=== PATIENT | male | born 1965 | race Caucasian/White ===

== ENCOUNTER 2024-08-10 06:16 | Emergency (ER) | payer OTHER, MEDICAID, SELFPAY ==
[2024-08-10 06:24] VITALS: BP 136/80; PULSE 100; RESP 20; TEMP 36.9; O2SAT 97; BMI 36.5
--- NOTE | 2024-08-10 06:25 | ED_ITS ---
HPI - General Adult General Chief complaint: Extremity Problem,Nontraumatic Stated complaint: left knee wound says its mersa Time Seen by Provider: 08/10/24 06:19 Source: patient Mode of arrival: Ambulatory Limitations: no limitations History of Present Illness HPI narrative: Patient is a 59-year-old male here for evaluation of a wound on the front portion of his left knee. He was unsure as to how the initial event happened but he states it has been worsening over the past couple days. He does have history of MRSA. He states that this morning the wound opened up and started to drain. No fevers. Some discomfort over the area of bending his knee but not in the knee joint itself. Related Data Previous Rx's Medication Instructions Recorded doxycycline hyclate 100 mg tablet 100 mg PO BID 7 days #14 tabs 08/10/24 Allergies Allergy/AdvReac Type Severity Reaction Status Date / Time No Known Drug Allergies Allergy Verified 08/10/24 06:23 Review of Systems Constitutional Constitutional: Reports system reviewed and no additional complaints, except as documented Musculoskeletal Musculoskeletal: Reports system reviewed and no additional complaints, except as documented Integumentary/Breasts Skin/Breast: Reports system reviewed and no additional complaints, except as documented Exam Initial Vital Signs Initial Vital Signs: Vital Signs Temperature 98.4 F 08/10/24 06:24 Pulse Rate 100 H 08/10/24 06:24 Respiratory Rate 20 08/10/24 06:24 Blood Pressure 136/80 08/10/24 06:24 Pulse Oximetry 97 08/10/24 06:24 Oxygen Delivery Method Room Air 08/10/24 06:24 Skin Other: Patient with a 4 cm in diameter area of erythema to the anterior portion of the left knee. There was a 1 cm area in the center of what appeared to be an abscess that is now draining. Extrem Other: Patient was able to flex and extend the left knee without discomfort. Course Orders Ordered: Discontinued Medications Doxycycline Hyclate (Doxycycline Hyclate 100 Mg Tablet) 100 mg PO NOW ONE Stop: 08/10/24 06:27 Last Admin: 08/10/24 06:29 Dose: 100 mg Vital Signs Vital signs: Vital Signs - 8 hr 08/10/24 06:24 Temperature 98.4 F Pulse Rate 100 H Respiratory Rate 20 Blood Pressure 136/80 Pulse Oximetry 97 Oxygen Delivery Method Room Air Medical Decision Making MDM Narrative Medical decision making narrative: Patient certainly has what appeared to be a abscess that is now draining. There was no underlying induration. No indication for an incision and drainage today as it was draining very well here in the ER. There is a surrounding area of erythema. I have low suspicion for septic joint. Plan will be to place him on antibiotics. He was given 1st dose here in the ER and a prescription was sent to the pharmacy of his choice. He was given return precautions. He expressed understanding and agreement. Discharge Plan Departure Patient Disposition: Home Clinical Impression: Cellulitis Instructions: Cellulitis Activity Restrictions/Additional Instructions: A prescription for antibiotics was sent to [facility] on [address] in [facility]. Please pick it up and start taking it as directed. You can shower like normal. You can try putting some topical antibiotic ointment over the area. Return to the emergency department for new symptoms. Prescriptions: New doxycycline hyclate 100 mg tablet 100 mg PO BID 7 Days Qty: 14 0RF Stand Alone Forms: Patient Portal/API
[2024-08-10] MEDS: DOXYCYCLINE HYCLATE 100 MG TABLET PO (06:29)
== END 2024-08-10 06:35 | disposition home or self-care (01) ==
PROVIDERS: Emergency Provider Emergency Medicine
DX: L03.116 Cellulitis of left lower limb (principal)
CPT/HCPCS: 99283

== ENCOUNTER 2024-11-28 02:45 | Observation (INO) | payer OTHER, SELFPAY ==
[2024-11-28] VITALS (14 sets, daily range): BP systolic 108–140; BP diastolic 56–83; PULSE 98–123; RESP 18–25; TEMP 36.2–38.8; O2SAT 92–97; BMI 38.0
--- NOTE | 2024-11-28 02:48 | ED.GENADULT ---
HPI - General Adult General Chief complaint: Nausea/Vomiting/Diarrhea Stated complaint: Vomiting, dizzy Time Seen by Provider: 11/28/24 02:46 History of Present Illness HPI narrative: 59-year-old male complains of 5 days duration of crampy abdominal pain, intermittent diarrhea, sometimes with blood-tinged component, not necessarily mixed with stool, also has headache. He denies having chest discomfort, shortness of breath, cough. Feels dizzy. No recent antibiotics. Denies painful urination or frequency of urination. Admitted to recent drug use to nursing, reports history also of narcolepsy Related Data Home Medications Medication Instructions Recorded Confirmed No Known Home Medications 11/28/24 11/28/24 Allergies Allergy/AdvReac Type Severity Reaction Status Date / Time No Known Drug Allergies Allergy Verified 08/10/24 06:23 Patient History Social History household members: none Smoking Status: Current every day smoker alcohol intake: current Smoking Status: Current every day smoker tobacco type: cigarettes alcohol intake frequency: holidays/special occasions only Exam Narrative Exam Narrative: GENERAL: Well-developed patient, in mild distress. Sleepy but arousable. HEAD: Atraumatic. Normocephalic. EYES: Pupils equal round and reactive. Extraocular motions intact. No scleral icterus. No injection or drainage. ENT: Nose without bleeding, purulent drainage. Throat without erythema, tonsillar hypertrophy or exudate. Airway patent. NECK: Trachea midline. Non tender CARDIOVASCULAR: Fast rate regular rhythm without murmurs, gallops, or rubs. RESPIRATORY: Clear to auscultation. Breath sounds equal bilaterally. No wheezes, rales, or rhonchi. GASTROINTESTINAL: Abdomen soft, non-tender, nondistended. Bowel tones not increased or decreased, no rushes/tinkles EXTREMITIES: No edema or joint tenderness. BACK: Nontender without deformity or crepitance. No flank tenderness. NEURO: AOx3. Motor functions grossly nonfocal SKIN: No rash or erythema of visible areas Initial Vital Signs Initial Vital Signs: Vital Signs Temperature 101.8 F H 11/28/24 02:50 Pulse Rate 123 H 11/28/24 02:50 Respiratory Rate 24 11/28/24 02:50 Pulse Oximetry 92 11/28/24 02:50 Oxygen Delivery Method Room Air 11/28/24 02:50 Course Orders Ordered: Acetaminophen (Acetaminophen 325 Mg Tablet) 650 mg PO Q6H PRN PRN Reason: Fever/Mild Pain (1-3) Hydrocodone Bitart/Acetaminophen (Hydrocodone/Acet 5/325 Tablet) 1 tab PO Q4H PRN PRN Reason: Pain, Moderate (4-6) Heparin Sodium (Porcine) (Heparin 5,000 Unit/Ml Vial) 5,000 unit SUBCUT BID [facility] Last Admin: 11/28/24 10:19 Dose: Not Given Documented By: JAYNE Hydromorphone HCl (Hydromorphone 0.5 Mg Inj) 0.5 mg IV Q2H PRN PRN Reason: Pain, Severe (7-10) Sodium Chloride (Normal Saline 0.9%) 1,000 mls @ 100 mls/hr IV CONT [facility] Last Admin: 11/28/24 09:24 Dose: 100 mls/hr Documented By: JAYNE Ceftriaxone Sodium 1,000 mg/ (Sodium Chloride) 100 mls @ 200 mls/hr IV Q24H [facility] Last Infusion: 11/28/24 07:11 Dose: Infused Documented By: Admin: 11/28/24 06:31 Dose: 200 mls/hr Documented By: KH Metronidazole (Flagyl) 500 mg in 100 mls @ 100 mls/hr IV Q8H [facility] Last Admin: 11/28/24 11:33 Dose: 100 mls/hr Documented By: JAYNE Naloxone HCl (Naloxone 0.4 Mg/Ml Vial) 0.2 mg IV Q2MIN PRN PRN Reason: Opiate Reversal Ondansetron HCl (Ondansetron 4 Mg/2 Ml Inj) 4 mg IV Q6HR PRN PRN Reason: Nausea And Vomiting Discontinued Medications Sodium Chloride (Normal Saline 0.9%) 1,000 mls @ 1,000 mls/hr IV BOLUS ONE Stop: 11/28/24 03:55 Last Infusion: 11/28/24 06:55 Dose: Infused Documented By: Infusion: 11/28/24 06:35 Dose: 450 mls/hr Documented By: Infusion: 11/28/24 05:50 Dose: 350 mls/hr Documented By: Infusion: 11/28/24 04:39 Dose: 300 mls/hr Documented By: Infusion: 11/28/24 03:05 Dose: 250 mls/hr Documented By: Admin: 11/28/24 03:03 Dose: 1,000 mls/hr Documented By: MILTON Sodium Chloride (Normal Saline 0.9%) 1,000 mls @ 1,000 mls/hr IV BOLUS ONE Stop: 11/28/24 04:05 Last Infusion: 11/28/24 09:10 Dose: Infused Documented By: Infusion: 11/28/24 08:55 Dose: 450 mls/hr Documented By: Admin: 11/28/24 06:54 Dose: 450 mls/hr Documented By: RANDAL Metronidazole (Flagyl) 500 mg in 100 mls @ 100 mls/hr IV Q8H [facility] Last Admin: 11/28/24 10:19 Dose: Not Given Documented By: JAYNE Vital Signs Vital signs: Vital Signs - 8 hr 11/28/24 02:50 11/28/24 04:30 11/28/24 04:48 Temperature 101.8 F H Pulse Rate 123 H 113 H 113 H Respiratory Rate 24 25 H 25 H Blood Pressure 131/78 Pulse Oximetry 92 95 95 Oxygen Delivery Method Room Air Room Air 11/28/24 05:00 11/28/24 05:30 Temperature Pulse Rate 116 H 111 H Respiratory Rate 21 23 Blood Pressure Pulse Oximetry 95 94 Oxygen Delivery Method Medical Decision Making Lab Data Lab results reviewed: Yes I reviewed the patient's lab results. Lab results narrative: White blood cell count 44904, hemoglobin 16.4, platelets adequate. Glucose 145. Sodium 136, potassium 3.8, serum CO2 19 decreased, serum chloride 106, BUN 19 with creatinine 0.69 both normal. Liver functions and lipase normal lactate 1.5 not elevated. Urine dip negative. Urine tox screen positive for amphetamine, methamphetamine, MDMA, cocaine. 11/28/24 03:15 11/28/24 03:15 Labs: Lab Results 11/28/24 11/28/24 Range/Units 03:15 05:14 WBC 12.4 H (4.5-11.0) X10^3/uL RBC 5.90 (4.5-5.9) X10^6/uL Hgb 16.4 (13.5-17.5) g/dL Hct 49.1 (41-53) % MCV 83.2 (80-100) fL MCH 27.7 (26-34) PG MCHC 33.3 (30-36) % RDW 14.5 (11.6-14.8) % Plt Count 271 (150-400) X10^3/uL Neut % (Auto) 95.1 H (50-75) % Lymph % (Auto) 2.0 L (25-40) % [place] % (Auto) 2.3 L (3-14) % Eos % (Auto) 0.5 L (2-4) % Baso % (Auto) 0.1 (0-2) % Neut # (Auto) 58199 H (3993-7242) /uL Lymph # (Auto) 200 L (9749-4516) /uL [place] # (Auto) 300 (0-900) /uL Eos # (Auto) 100 (0-450) /uL Baso # (Auto) 0 (0-100) /uL Sodium 136 L (137-145) mmol/L Potassium 3.8 (3.4-5.1) mmol/L Chloride 106 (98-107) mmol/L Carbon Dioxide 19 L (22-32) mmol/L BUN 19 (9-20) mg/dL Creatinine 0.69 (0.66-1.25) mg/dL Estimated GFR > 60 (>60) mL/min BUN/Creatinine Ratio 27.5 H (6-22) Glucose 145 H (70-100) mg/dL Lactate 1.5 (0.7-2.1) mmol/L Calcium 8.4 (8.4-10.2) mg/dL Total Bilirubin 0.7 (0.2-1.3) mg/dL AST 28 (17-59) IU/L ALT 31 (<50) IU/L Alkaline Phosphatase 81 (38-126) U/L Total Protein 7.7 (6.3-8.2) g/dL Albumin 4.3 (3.5-5.0) g/dL Globulin 3.4 (1.7-4.1) g/dL Albumin/Globulin Ratio 1.3 (1.0-2.8) Lipase 59 (23-300) U/L Ur Bilirubin Confirm Negative (Negative) U Opiates 300ng/mL cut Negative (Negative) Ur Oxycodone Screen Negative (Negative) Urine Methadone Screen Negative (Negative) Ur Barbiturates Screen Negative (Negative) U Tricyclic Antidepress Negative (Negative) Ur Phencyclidine Scrn Negative (Negative) Ur Amphetamines Screen Positive H (Negative) U Methamphetamines Scrn Positive H (Negative) Ur MDMA Scrn (Ecstasy) Positive H (Negative) U Benzodiazepines Scrn Negative (Negative) Urine Cocaine Screen Positive H (Negative) U Marijuana (THC) Screen Negative (Negative) Urine pH TNP Urine Specific [place] TNP Ur Creatinine TNP Urine Dip Bedside Urine Glucose Negative Bedside Urine Bilirubin + 1 Bedside Urine Ketone - Negative Urine Specific [place] 1.015 Bedside Urine Occult Blood - Negative Bedside Urine pH 5.5 Bedside Urine Protein - Negative Bedside Urine Urobilinogen - Negative Bedside Urine Nitrite - Negative Bedside Urine Leukocytes - Negative Esterase Point of care testing: Urine Dip Bedside Urine Glucose Negative Bedside Urine Bilirubin + 1 Bedside Urine Ketone - Negative Urine Specific [place] 1.015 Bedside Urine Occult Blood - Negative Bedside Urine pH 5.5 Bedside Urine Protein - Negative Bedside Urine Urobilinogen - Negative Bedside Urine Nitrite - Negative Bedside Urine Leukocytes - Negative Esterase ECG Data Attestation: I personally reviewed and interpreted this ECG as follows: Interpretation: Sinus tachycardia with rate of 115. No obvious ST segment elevation or depression changes. SD 172, QRS 92, QTC 450. [facility] Narrative Medical decision making narrative: 59-year-old male with abdominal discomfort, vomiting, diarrhea, tachycardia noted, fever on triage, sirs screen positive. Stool specimen requested by none received initially. IV fluid bolus. Blood cultures. IV ceftriaxone after blood and urine specimens requested. CT abdomen and pelvis ordered. White blood cell count 25351, lactate normal, hemoglobin normal, basic metabolic panel with decreased serum CO2 19 otherwise unremarkable. LFTs unremarkable. UDS positive for methamphetamine, amphetamine, MDMA, cocaine. Urine dip negative for blood/nitrite. Chest x-ray single view. Impressions: ?Normal heart size to borderline cardiomegaly. ? See tele radiology report CT abdomen and pelvis with IV contrast. Impressions: ?Distended 4 cm with predominantly left-sided jejunal loops with up to 9 mm circumferential wall thickening. No definite evidence of transition point or neighboring fat stranding. Jejunitis can not be excluded for clinical correlation is recommended. Indeterminate 25 mm left adrenal nodule, further evaluation with nonemergent adrenal protocol CT or MRI recommended. ? See tele radiology report Fluid bolus infused, IV ceftriaxone after blood cultures had been requested for empiric treatment of possible sepsis. Urinalysis and stool study still pending. Persisting tachycardia 115, normotensive, consider admission, will discuss with hospitalist. 0600, case discussed with hospitalist Dr. Mata who will admit patient to [facility] tele observation Discharge Plan Departure Patient Disposition: Admitted as Observation Clinical Impression: Tachycardia, Nausea vomiting and diarrhea, Substance abuse, Fever Admit Date/Time: 11/28/24 06:09 Admit Provider: Austin Mata
[2024-11-28] MEDS: SODIUM CHLORIDE 0.9% 1,000 ML 1000 ML IV (03:03)
--- NOTE | 2024-11-28 03:11 | EKG_ITS ---
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
--- NOTE | 2024-11-28 03:22 | DI.RAD.S_ITS ---
PROCEDURE: XR CHEST 1V INDICATIONS: fever TECHNIQUE: One view of the chest was acquired. COMPARISON: [facility], CT, CT ABDOMEN PELVIS W CON, 11/28/2024, 4:02. FINDINGS: Surgical changes and devices: None. Lungs and pleura: An incomplete inspiratory result is noted, causing a crowded appearance to the lung markings. No focal infiltrates are seen. No pneumothorax or significant pleural effusions are seen. The patient's face/chin overlies the pulmonary apices, which limits evaluation. Mediastinum: The cardiac contours are at the upper limits of normal. The aorta demonstrates calcification and tortuosity. Bones and chest wall: No suspicious bony lesions. Age-appropriate bony degenerative changes are seen. Overlying soft tissues appear unremarkable. IMPRESSION: Low lung volumes, without a focal infiltrate. Heart size at the upper limits of normal. Note: No significant discrepancy from the preliminary report. Dictated by: Luis Johnson M.D. on 11/28/2024 at 9:01 Approved by: Luis Johnson M.D. on 11/28/2024 at 9:02
--- NOTE | 2024-11-28 03:33 | PC.NURSE ---
pt c/o n/v admits to using meth about an hour ago, continues to doze off while attempting to get pt assessed, pt states I have narcolepsy, not actively vomiting at this time,
[2024-11-28 03:38] LABS: Add Manual Diff / Slide Review NO; Basophils Absolute Auto 0 /uL (0-100); Basophils Percent Auto 0.1 % (0-2); Eosinophils Absolute Auto 100 /uL (0-450); Eosinophils Percent Auto 0.5 % (2-4); Hematocrit 49.1 % (41-53); Hemoglobin 16.4 g/dL (13.5-17.5); Lymphocytes Absolute Auto 200 /uL (1100-4500); Mean Corpuscular HGB Conc 33.3 % (30-36); Mean Corpuscular Hemoglobin 27.7 PG (26-34); Mean Corpuscular Volume 83.2 fL (80-100); Monocytes Absolute Auto 300 /uL (0-900); Monocytes Percent Auto 2.3 % (3-14); Neutrophils Absolute Auto 11800 /uL (1500-7000); Neutrophils Percent Auto 95.1 % (50-75); Platelet Count 271 X10^3/uL (150-400); Red Cell Distribution Width 14.5 % (11.6-14.8); White Blood Cell Count 12.4 X10^3/uL (4.5-11.0)
--- NOTE | 2024-11-28 03:40 | DI.CT.S_ITS ---
PROCEDURE: CT ABDOMEN PELVIS W CON INDICATIONS: abd pain TECHNIQUE: After the administration of intravenous contrast, axial sections acquired from the lung bases to the pubic symphysis. Coronal and sagittal reformats were performed. For radiation dose reduction, the following was used: automated exposure control, adjustment of mA and/or kV according to patient size. COMPARISON: [facility], CR, XR CHEST 1V, 11/28/2024, 3:33. FINDINGS: Image quality: This examination is limited by involuntary motion artifact. Lower Chest: Streaky a likely atelectasis can be seen at the lung bases. ABDOMEN: Liver: No solid mass. Diffuse fatty liver infiltration is noted. Gallbladder: No radiopaque gallstones or wall thickening. Biliary ducts: No biliary dilation. Pancreas: No ductal dilation. Spleen: Size is within normal limits. Adrenal Glands: There is a left adrenal nodule seen that measures up to 2.2 cm. No right adrenal nodules. Kidneys and Ureters: No hydronephrosis. No solid mass. No complex renal cystic lesion which requires follow up. Stomach and Bowel: Mild prominence of fluid-filled small bowel can be seen proximally, measuring up to 3.7 cm. These proximal small bowel loops appear thickened and mildly hypervascular. The distal small bowel is decompressed. No focal transition point can be seen. No significant colonic abnormality is seen. Peritoneum: No abnormal intraperitoneal fluid. No free air. Ventral Wall: No significant ventral hernia. Abdominal Nodes: No retroperitoneal or mesenteric adenopathy by size criteria. Vessels: Aorta and inferior vena cava are normal in size. PELVIS: Pelvic Organs: Unremarkable. Bladder: No bladder wall thickening, accounting for underdistention. Pelvic Nodes: No enlarged lymph nodes. Miscellaneous: No inguinal hernias are seen. Bones: No aggressive osseous abnormality. IMPRESSION: Prominence of proximal small bowel loops can be seen, with decompressed distal small bowel loops. No focal transition point seen. Proximal enteritis is suspected. Differential diagnosis includes small bowel obstruction, yet this is considered to be less likely. Left adrenal nodule seen. This is indeterminate. - Please consider a dedicated adrenal protocol MRI for further evaluation (assuming that there is no contraindication). Additional findings: Fatty liver infiltration Note: No significant discrepancy from the preliminary report. Dictated by: Luis Johnson M.D. on 11/28/2024 at 9:05 Approved by: Luis Johnson M.D. on 11/28/2024 at 9:09
[2024-11-28 03:45] LABS: Lactate (Lactic Acid) 1.5 mmol/L (0.7-2.1)
[2024-11-28 03:46] LABS: Alanine Aminotransferase 31 IU/L (<50); Albumin 4.3 g/dL (3.5-5.0); Albumin Globulin Ratio 1.3 (1.0-2.8); Alkaline Phosphatase 81 U/L (38-126); Aspartate Aminotransferase 28 IU/L (17-59); BUN Creatinine Ratio 27.5 (6-22); Bilirubin Total 0.7 mg/dL (0.2-1.3); Blood Urea Nitrogen 19 mg/dL (9-20); Calcium 8.4 mg/dL (8.4-10.2); Carbon Dioxide 19 mmol/L (22-32); Chloride 106 mmol/L (98-107); Estimated Glomerular Filt Rate > 60 mL/min (>60); Globulin 3.4 g/dL (1.7-4.1); Glucose 145 mg/dL (70-100); HEMOLYSIS 18 (0-50); Lipase 59 U/L (23-300); Potassium 3.8 mmol/L (3.4-5.1); Sodium 136 mmol/L (137-145); Total Protein 7.7 g/dL (6.3-8.2)
--- NOTE | 2024-11-28 04:10 | PC.NURSE ---
to CT per stretcher
[2024-11-28 05:47] LABS: Ictotest Urine Negative (Negative)
[2024-11-28 05:53] LABS: Urine Amphetamines Positive (Negative); Urine Barbiturates Negative (Negative); Urine Benzodiazepines Negative (Negative); Urine Cocaine Positive (Negative); Urine MDMA Positive (Negative); Urine Methadone Negative (Negative); Urine Methamphetamines Positive (Negative); Urine Opiates Negative (Negative); Urine Oxycodone Negative (Negative); Urine Phencyclidine Negative (Negative); Urine THC Negative (Negative); Urine Tricyclic Antidepressant Negative (Negative)
[2024-11-28] MEDS: cefTRIAXone 1,000 MG in SODIUM CHLORIDE 0.9% 100 ML 200 MG IV (06:31)
--- NOTE | 2024-11-28 06:31 | PC.NURSE ---
Attempted to locate pt ride/friend in parking lot, but was unsuccessful.
[2024-11-28] MEDS: SODIUM CHLORIDE 0.9% 1,000 ML 450 ML IV (06:54)
--- NOTE | 2024-11-28 08:07 | PM.HP.1 ---
History of Present Illness History of Present Illness Chief complaint: Vomiting, dizzy Narrative: 59-year-old male with past medical history of polysubstance abuse presents with abdominal pain. Per the patient's report, the patient has been having nausea, vomiting and non-bloody diarrhea over the past five days. The patient states that his abdominal pain is generalized and cramping in nature. The patient denies any recent travel or sick contact. The patient admit to have illicit drug use including cocaine and methamphetamine. The patient otherwise denies any fever, chills, chest pain, shortness of breath, dysuria or syncope. In our emergency room, the patient was persistently in sinus tachycardia. The patient was hemodynamically stable. Lab showed WBC of 12 with normal lactic acid. UA were negative. CT scan of the abdomen with IV contrast shows findings in which Jejunitis can not be excluded. In addition, due to persistent tachycardia and elevated white count our ER physician did give IV Ceftriaxoneto cover for G.I. infection and requested admission to observation. Also UA positive for cocaine, methamphetamine and MDMA. [facility], [facility] Social History Smoking Status: Current every day smoker Meds Home Medications and Allergies Home Medications Medication Instructions Recorded Confirmed Type No Known Home Medications 11/28/24 11/28/24 History Allergies Allergy/AdvReac Type Severity Reaction Status Date / Time No Known Drug Allergies Allergy Verified 08/10/24 06:23 Review of Systems Review of Systems ROS: Yes All systems reviewed with the patient and are negative except as otherwise documented Exam Vital Signs (past 8 hours): - 11/28/24 02:50 11/28/24 04:30 11/28/24 04:48 Temperature 101.8 F H Pulse Rate 123 H 113 H 113 H Respiratory Rate 24 25 H 25 H Blood Pressure 131/78 Pulse Oximetry 92 95 95 Oxygen Delivery Method Room Air Room Air 11/28/24 05:00 11/28/24 05:30 11/28/24 06:00 Temperature Pulse Rate 116 H 111 H 110 H Respiratory Rate 21 23 25 H Blood Pressure Pulse Oximetry 95 94 94 Oxygen Delivery Method 11/28/24 06:00 11/28/24 06:30 11/28/24 06:30 Temperature Pulse Rate 111 H Respiratory Rate Blood Pressure 116/83 122/61 Pulse Oximetry 95 Oxygen Delivery Method 11/28/24 07:00 11/28/24 07:00 11/28/24 07:30 Temperature Pulse Rate 110 H 107 H Respiratory Rate 18 Blood Pressure 116/56 L Pulse Oximetry 94 95 Oxygen Delivery Method Room Air Oxygen Delivery Method Room Air Narrative Exam Narrative: Physical Exam: GENERAL: The patient is not in any acute distressed. Awake and alert. HEENT: Nonicteric sclerae, PERRLA, EOMI. Oropharynx clear. Moist mucous membranes. Conjunctivae appear well perfused. HEART: Tachycardia with regular rhythm without murmurs. No lower extremities edema. LUNGS: Clear to auscultation bilaterally. No wheezing, crackles or rhonchi ABDOMEN: Soft, positive bowel sounds, nontender. SKIN: No rash, no excessive bruising, petechiae, or purpura. NEUROLOGIC: AxO x 3. Cranial nerves II-XII intact without motor/sensory deficit. Objective Labs 11/28/24 03:15 11/28/24 03:15 Labs: Laboratory Results - last 24 hr 11/28/24 11/28/24 03:15 05:14 WBC 12.4 H RBC 5.90 Hgb 16.4 Hct 49.1 MCV 83.2 MCH 27.7 MCHC 33.3 RDW 14.5 Plt Count 271 Neut % (Auto) 95.1 H Lymph % (Auto) 2.0 L [place] % (Auto) 2.3 L Eos % (Auto) 0.5 L Baso % (Auto) 0.1 Neut # (Auto) 65735 H Lymph # (Auto) 200 L [place] # (Auto) 300 Eos # (Auto) 100 Baso # (Auto) 0 Sodium 136 L Potassium 3.8 Chloride 106 Carbon Dioxide 19 L BUN 19 Creatinine 0.69 Estimated GFR > 60 BUN/Creatinine Ratio 27.5 H Glucose 145 H Lactate 1.5 Calcium 8.4 Total Bilirubin 0.7 AST 28 ALT 31 Alkaline Phosphatase 81 Total Protein 7.7 Albumin 4.3 Globulin 3.4 Albumin/Globulin Ratio 1.3 Lipase 59 Ur Bilirubin Confirm Negative U Opiates 300ng/mL cut Negative Ur Oxycodone Screen Negative Urine Methadone Screen Negative Ur Barbiturates Screen Negative U Tricyclic Antidepress Negative Ur Phencyclidine Scrn Negative Ur Amphetamines Screen Positive H U Methamphetamines Scrn Positive H Ur MDMA Scrn (Ecstasy) Positive H U Benzodiazepines Scrn Negative Urine Cocaine Screen Positive H U Marijuana (THC) Screen Negative Urine pH TNP Urine Specific [place] TNP Ur Creatinine TNP Assessment & Plan Assessment & Plan narrative: Positive for SIRS criteria with possible Jejunitis. Admit the patient to medical telemetry under observation. Patient meets SIRS criteria though the lactic acid is normal. Continue aggressive IV fluid with IV Ceftriaxone and Flagyl. Monitor for sepsis. Persistent sinus tachycardia. Could be related to patient's poly substance abuse including methamphetamine and cocaine. Will treat as above and monitor heart rate. Polysubstance abuse. Monitor for withdrawal Dehydration. IV fluid. DVT prophylaxis SCDs Code status is full code. Disposition likely home in 1 to 2 days. Time-Based Coding :: [TOTAL MINUTES] spent with patient and on the chart (including review of chart, obtaining history, exam, reviewing outside data, placing orders, documenting exam and treatment plan, and counseling patient) on [DATE].
--- NOTE | 2024-11-28 08:55 | PC.NURSE ---
Pt able to stand and shuffle to bed in acute care. Pt refusing to remove his pants stating I dont have underwear. Pt informed we can provide underwear. Pt continues to get increasing agitated states I'm not taking off my pants! You'll just have to go get a bunch of people to make me. Pt informed we need to check his skin for any signs of infection under his pants and pt continues to refuse and yell You are not taking my pants off! Pt's jacket and shirt were removed and pt placed in hospital gown with pants remaining on.
[2024-11-28] MEDS: SODIUM CHLORIDE 0.9% 1,000 ML 100 ML IV ×2 (09:24→19:25)
[2024-11-28] MEDS: metroNIDAZOLE 500 MG/100 ML PIGGYBACK 100 MG IV ×2 (11:33→18:36)
--- NOTE | 2024-11-28 11:55 | PC.NURSE ---
Pt ambulated to BR contact guard, declines to use FWW despite unsteady gait. Reports history of colon cancer in 2020, stated it was cured with oregano oil and is fearful it might be back. Pt sitting at edge of bed, kicking feet backward against bed frame. Pt uncooperative with admit assessment. Pt still sitting at edge of bed, declines to sit in chair on back in bed despite unsteady posture and forward leaning. Pt educated by this RN on fall prevention and his risk of falls. Pt continues to decline. Care ongoing.
--- NOTE | 2024-11-28 16:47 | PM.PN.1 ---
Subjective Subjective Interval history: 59-year-old male with past medical history of polysubstance dependence, reported history of colon cancer which he states was cured with oregano oil who presented overnight with crampy abdominal pain, diarrhea, and sepsis. CT scan revealed evidence of proximal small bowel enteritis. A left adrenal nodule was also identified. Blood cultures were drawn and are pending. He was initiated on ceftriaxone and Flagyl. At the time of my evaluation, patient is snoring. He will very briefly awaken and rapidly falls back asleep. When I have asked him to stay awake and talked me, he responds ?I am awake? and quickly falls back asleep. Earlier in the morning, he was upset with his day shift nurse, telling her that we did not know what was wrong with him. He did express concern that his colon cancer could be back. Exam Vital Signs (past 8 hours): - 11/28/24 09:07 11/28/24 15:00 Temperature 98.1 F 97.6 F Pulse Rate 111 H 103 H Respiratory Rate 22 24 Blood Pressure 108/64 129/67 Pulse Oximetry 97 97 Oxygen Flow Rate 0 0 Oxygen Delivery Method Room Air Oxygen Flow Rate 0 Narrative Exam Narrative: GEN: Middle-aged male, currently nontoxic appearing, snoring and asleep, NAD HEENT:NC, Face symmetric CHEST: Respiratory excursions symmetric, CTAB CV: RRR, no M/R/G ABD: Soft, obese, NT/ND, BT present in all 4 quadrants, body habitus limits exam EXTR: warm, well perfused, no C/C/E SKIN: warm and dry, no rash NEURO: Unable to assess due to his deep sleeping Objective Labs 11/28/24 03:15 11/28/24 03:15 Labs: Laboratory Results - last 24 hr 11/28/24 11/28/24 03:15 05:14 WBC 12.4 H RBC 5.90 Hgb 16.4 Hct 49.1 MCV 83.2 MCH 27.7 MCHC 33.3 RDW 14.5 Plt Count 271 Neut % (Auto) 95.1 H Lymph % (Auto) 2.0 L [place] % (Auto) 2.3 L Eos % (Auto) 0.5 L Baso % (Auto) 0.1 Neut # (Auto) 90325 H Lymph # (Auto) 200 L [place] # (Auto) 300 Eos # (Auto) 100 Baso # (Auto) 0 Sodium 136 L Potassium 3.8 Chloride 106 Carbon Dioxide 19 L BUN 19 Creatinine 0.69 Estimated GFR > 60 BUN/Creatinine Ratio 27.5 H Glucose 145 H Lactate 1.5 Calcium 8.4 Total Bilirubin 0.7 AST 28 ALT 31 Alkaline Phosphatase 81 Total Protein 7.7 Albumin 4.3 Globulin 3.4 Albumin/Globulin Ratio 1.3 Lipase 59 Ur Bilirubin Confirm Negative U Opiates 300ng/mL cut Negative Ur Oxycodone Screen Negative Urine Methadone Screen Negative Ur Barbiturates Screen Negative U Tricyclic Antidepress Negative Ur Phencyclidine Scrn Negative Ur Amphetamines Screen Positive H U Methamphetamines Scrn Positive H Ur MDMA Scrn (Ecstasy) Positive H U Benzodiazepines Scrn Negative Urine Cocaine Screen Positive H U Marijuana (THC) Screen Negative Urine pH TNP Urine Specific [place] TNP Ur Creatinine TNP PFSH Social History household members: none Smoking Status: Current every day smoker alcohol intake: current Assessment & Plan Assessment & Plan narrative: 1. Sepsis Patient presented with symptoms and signs of sepsis, including fever, tachycardia, leukocytosis, and evidence of enteritis. He does have a history of polysubstance dependence as well. I am unable to further clarify his use. Blood cultures have been drawn and are pending. At this time he remains on ceftriaxone and Flagyl. Will continue present treatment. He is presently afebrile. 2. Proximal small bowel enteritis Continue ceftriaxone and Flagyl. Will send stool cultures and fecal leukocytes if he produces any stool. 3. Polysubstance dependence I am unable to obtain history at this time, but his urine tox screen was positive for amphetamines, methamphetamines, MDMA, and cocaine. 4. Reported history of colon cancer Untreated per his report. We have no history in our medical record system to obtain further information. Will await when he is more awake and alert to obtain additional information as to his diagnosis and treatment. 5. Tobacco dependence Nicotine patch as needed Code status Full Prophylaxis Heparin Disposition Pending Time-Based Coding :: [TOTAL MINUTES] spent with patient and on the chart (including review of chart, obtaining history, exam, reviewing outside data, placing orders, documenting exam and treatment plan, and counseling patient) on [DATE].
--- NOTE | 2024-11-28 21:49 | PC.NURSE ---
Addendum entered by Janett Spencer R.N. 11/29/24 07:07: Pt set off chair alarm getting up to ambulate to bathroom despite fall prevention education. Patient then declined to call when done, however this RN was waiting outside the door and helped him get back into his chair. Despite further educating patient on fall risk, pt repeatedly stated he would not call for assistance ambulating because he doesn't need it and he's faster than you. Addendum entered by Janett Spencer R.N. 11/29/24 05:55: Pt slept soundly in his chair most of the night, awakened only by visitor (girlfriend) and lab and fell quickly back asleep both times. Addendum entered by Janett Spencer R.N. 11/29/24 00:38: Pt snoring loudly; SpO2 96%, HR 104. Asked patient if he is having any trouble breathing; pt said no. Asked patient if he would like to consult with resp therapy; pt declined. Original Note: NOC: Educated pt on purpose of and need for stool sample, patient refused hat in toilet. Pt asked Does anyone know what's going on with me?. Educated pt on plan of care including abx and fluids. Pt stated understanding but continued to refuse hat in toilet. Plan of care continues.
[2024-11-29] VITALS: PULSE 104; RESP 24; O2SAT 96
[2024-11-29] MEDS: metroNIDAZOLE 500 MG/100 ML PIGGYBACK 100 MG IV ×2 (02:04→11:47)
[2024-11-29] MEDS: SODIUM CHLORIDE 0.9% 1,000 ML 100 ML IV (02:30)
[2024-11-29 02:35] VITALS: BP 145/85; PULSE 100; RESP 24; TEMP 36.6; O2SAT 98
[2024-11-29] MEDS: cefTRIAXone 1,000 MG in SODIUM CHLORIDE 0.9% 100 ML 200 MG IV (05:43)
--- NOTE | 2024-11-29 08:13 | PM.PN.1 ---
Subjective Subjective Interval history: Summary: 59-year-old male with past medical history of polysubstance dependence, reported history of colon cancer which he states was cured with oregano oil who presented overnight with crampy abdominal pain, diarrhea, and sepsis. CT scan revealed evidence of proximal small bowel enteritis. A left adrenal nodule was also identified. Blood cultures were drawn and are pending. He was initiated on ceftriaxone and Flagyl. S: He was improved today. Less abdominal pain. Good appetite. Hands and legs are swollen. Exam Vital Signs (past 8 hours): - 11/29/24 02:35 Temperature 97.9 F Pulse Rate 100 H Respiratory Rate 24 Blood Pressure 145/85 H Pulse Oximetry 98 Oxygen Delivery Method Room Air Oxygen Flow Rate 0 Narrative Exam Narrative: NAD, alert and oriented. Fluent speech. Lungs are clear, normal rate and effort. Heart is regular, no murmur gallop or rub. Abdomen is soft, non distended. Extremities are free of edema. Objective Labs 11/29/24 09:12 11/29/24 09:12 [facility] Social History household members: none Smoking Status: Current every day smoker alcohol intake: current Assessment & Plan Assessment & Plan narrative: 1. Sepsis, resolved. Patient presented with symptoms and signs of sepsis, including fever, tachycardia, leukocytosis, and evidence of enteritis. He does have a history of polysubstance dependence as well. I am unable to further clarify his use. Blood cultures have been drawn and are pending. At this time he remains on ceftriaxone and Flagyl. Will continue present treatment. He is presently afebrile. 2. Proximal small bowel enteritis, improved. Continue ceftriaxone and Flagyl. Will send stool cultures and fecal leukocytes if he produces any stool. 3. Polysubstance dependence, active. I am unable to obtain history at this time, but his urine tox screen was positive for amphetamines, methamphetamines, MDMA, and cocaine. 4. Reported history of colon cancer, unclear status. Untreated per his report. We have no history in our medical record system to obtain further information. Will await when he is more awake and alert to obtain additional information as to his diagnosis and treatment. 5. Tobacco dependence, active. Nicotine patch as needed Plan: -we will see how he does with lunch -stop IV fluids Code status Full Prophylaxis Heparin Time-Based Coding :: [TOTAL MINUTES] spent with patient and on the chart (including review of chart, obtaining history, exam, reviewing outside data, placing orders, documenting exam and treatment plan, and counseling patient) on [DATE].
[2024-11-29 09:22] LABS: Add Manual Diff / Slide Review NO; Basophils Absolute Auto 0 /uL (0-100); Basophils Percent Auto 0.6 % (0-2); Eosinophils Absolute Auto 100 /uL (0-450); Eosinophils Percent Auto 0.9 % (2-4); Hematocrit 41.9 % (41-53); Hemoglobin 14.1 g/dL (13.5-17.5); Lymphocytes Absolute Auto 1200 /uL (1100-4500); Lymphocytes Percent Auto 16.1 % (25-40); Mean Corpuscular HGB Conc 33.7 % (30-36); Mean Corpuscular Hemoglobin 27.8 PG (26-34); Mean Corpuscular Volume 82.4 fL (80-100); Monocytes Absolute Auto 500 /uL (0-900); Monocytes Percent Auto 7.1 % (3-14); Neutrophils Absolute Auto 5800 /uL (1500-7000); Neutrophils Percent Auto 75.3 % (50-75); Platelet Count 223 X10^3/uL (150-400); Red Blood Cell Count 5.08 X10^6/uL (4.5-5.9); Red Cell Distribution Width 14.3 % (11.6-14.8); White Blood Cell Count 7.7 X10^3/uL (4.5-11.0)
[2024-11-29 09:35] VITALS: BP 122/76; PULSE 88; RESP 20; TEMP 36.4; O2SAT 96
[2024-11-29 09:38] LABS: BUN Creatinine Ratio 13.8 (6-22); Blood Urea Nitrogen 8 mg/dL (9-20); Carbon Dioxide 21 mmol/L (22-32); Chloride 105 mmol/L (98-107); Estimated Glomerular Filt Rate > 60 mL/min (>60); Glucose 143 mg/dL (70-100); HEMOLYSIS 20 (0-50); Potassium 3.1 mmol/L (3.4-5.1); Sodium 134 mmol/L (137-145)
[2024-11-29] MEDS: POTASSIUM CHLORIDE 20 MEQ TAB 40 MEQ PO (11:47)
[2024-11-29] MEDS: FUROSEMIDE 40 MG TABLET PO (12:02)
--- NOTE | 2024-11-29 13:31 | PM.DS.1 ---
History of Present Illness History of Present Illness Chief complaint: Vomiting, dizzy Narrative: From H&P: 59-year-old male with past medical history of polysubstance abuse presents with abdominal pain. Per the patient's report, the patient has been having nausea, vomiting and non-bloody diarrhea over the past five days. The patient states that his abdominal pain is generalized and cramping in nature. The patient denies any recent travel or sick contact. The patient admit to have illicit drug use including cocaine and methamphetamine. The patient otherwise denies any fever, chills, chest pain, shortness of breath, dysuria or syncope. In our emergency room, the patient was persistently in sinus tachycardia. The patient was hemodynamically stable. Lab showed WBC of 12 with normal lactic acid. UA were negative. CT scan of the abdomen with IV contrast shows findings in which Jejunitis can not be excluded. In addition, due to persistent tachycardia and elevated white count our ER physician did give IV Ceftriaxoneto cover for G.I. infection and requested admission to observation. Also UA positive for cocaine, methamphetamine and MDMA. Discharge Providers Provider Date of admission: 11/28/24 06:09 Discharge Date: 11/29/24 Consults: 11/28/24 03:00 Consult to [facility] [place] Risk Control Analyst Stat Comment: Risk Control Analyst Consult needed for:: Homeless Has no money Substance abuse Unemployed Discharge provider: Jarvis Cervantes MD Summary Hospital Course Discharge Diagnosis: 1. Sepsis, resolved. Patient presented with symptoms and signs of sepsis, including fever, tachycardia, leukocytosis, and evidence of enteritis. He does have a history of polysubstance dependence as well. I am unable to further clarify his use. Blood cultures have been drawn and are pending. At this time he remains on ceftriaxone and Flagyl. Will continue present treatment. He is presently afebrile. 2. Proximal small bowel enteritis, improved. Continue ceftriaxone and Flagyl. Will send stool cultures and fecal leukocytes if he produces any stool. 3. Polysubstance dependence, active. I am unable to obtain history at this time, but his urine tox screen was positive for amphetamines, methamphetamines, MDMA, and cocaine. 4. Reported history of colon cancer, unclear status. Untreated per his report. We have no history in our medical record system to obtain further information. Will await when he is more awake and alert to obtain additional information as to his diagnosis and treatment. 5. Tobacco dependence, active. Nicotine patch as needed Hospital Course: He was admitted with enteritis do with empiric antibiotics and IV fluids. He improved. He had no evidence of diarrhea. On the day of discharge he felt at baseline, he would mild edema of his hands from his IV fluids. He had a normal appetite, no abdominal pain, no diarrhea. He was comfortable discharging on oral antibiotics with close follow up in his able to take a shower and ambulate comfortably before leaving the unit. Status at Discharge Cognitive/behavioral status at discharge: oriented Functional status at discharge: independent ambulation Overall status at discharge: patient is back to baseline Time Spent with Patient Time spent: Greater than 30 minutes Exam Vital Signs (past 8 hours): - 11/29/24 09:35 Temperature 97.6 F Pulse Rate 88 Respiratory Rate 20 Blood Pressure 122/76 Pulse Oximetry 96 Oxygen Flow Rate 0 Oxygen Delivery Method Room Air Oxygen Flow Rate 0 Narrative Exam Narrative: NAD, alert and oriented. Fluent speech. Lungs are clear, normal rate and effort. Heart is regular, no murmur gallop or rub. Abdomen is soft, non distended. Extremities are free of edema. Objective Labs 11/29/24 09:12 11/29/24 09:12 Labs: Laboratory Results - last 24 hr 11/29/24 09:12 WBC 7.7 RBC 5.08 Hgb 14.1 Hct 41.9 MCV 82.4 MCH 27.8 MCHC 33.7 RDW 14.3 Plt Count 223 Neut % (Auto) 75.3 H Lymph % (Auto) 16.1 L [place] % (Auto) 7.1 Eos % (Auto) 0.9 L Baso % (Auto) 0.6 Neut # (Auto) 5800 Lymph # (Auto) 1200 [place] # (Auto) 500 Eos # (Auto) 100 Baso # (Auto) 0 Sodium 134 L Potassium 3.1 L Chloride 105 Carbon Dioxide 21 L BUN 8 L Creatinine 0.58 L Estimated GFR > 60 BUN/Creatinine Ratio 13.8 Glucose 143 H Calcium 8.0 L PFSH Social History household members: none Smoking Status: Current every day smoker alcohol intake: current Discharge Assessment & Plan Assessment and Plan Assessment: 1. Sepsis, resolved. Patient presented with symptoms and signs of sepsis, including fever, tachycardia, leukocytosis, and evidence of enteritis. He does have a history of polysubstance dependence as well. I am unable to further clarify his use. Blood cultures have been drawn and are pending. At this time he remains on ceftriaxone and Flagyl. Will continue present treatment. He is presently afebrile. 2. Proximal small bowel enteritis (norovirus and yersenia), improved. Continue ceftriaxone and Flagyl. Will send stool cultures and fecal leukocytes if he produces any stool. Stool cx: positive for yersinia and norovirus (posted after his discharge). Plan of Treatment: Discharge home with oral antibiotics and symptomatic treatment. He will follow up with his PCP within the next 10 days. Discharge Plan Discharge Plan Patient Disposition: Home Provider Discharge Comment: Symptoms improved, stable for discharge home with close follow up. Discharge orders & Medications Prescriptions: New amoxicillin-pot clavulanate 875-125 mg tablet 1 tab PO BID Qty: 10 0RF Discharge Health Status Multidrug resistant organism: No MDRO Diet/Activity/Treatments Diet: Regular Visit Report/Discharge Packet Instructions: Amoxicillin, DI for Colitis Stand Alone Forms: Patient Portal/API Discharge Data Attending Provider: Austin Mata Admit Date/Time: 11/28/24 06:09 Quality MIPS - DC The patient has a history of heart transplant or Left Ventricular Assist Device (LVAD). If yes, STOP here.: No The patient has current or prior documentation of left ventricular ejection fraction (LVEF) less than or equal to 40%, or moderate or severely depressed left ventricular systolic function.: No
[2024-11-29 15:00] LABS: Adenovirus F 40/41 Not Detected (Not Detect); Astrovirus Not Detected (Not Detect); Campylobacter Not Detected (Not Detect); Clostridium difficile toxin AB Not Detected (Not Detect); Cryptosporidium Not Detected (Not Detect); Cyclospora cayetanensis Not Detected (Not Detect); Entamoeba histolytica Not Detected (Not Detect); Enteroaggregative E.coli Not Detected (Not Detect); Enteropathogenic E.coli Not Detected (Not Detect); Enterotoxigenic E.coli It/st Not Detected (Not Detect); Giardia lamblia Not Detected (Not Detect); Norovirus GI/GII Detected (Not Detect); Plesiomonsa shigelloides Not Detected (Not Detect); Rotavirus A Not Detected (Not Detect); Salmonella Not Detected (Not Detect); Sapovirus Not Detected (Not Detect); Shiga-like toxin-prod E.coli Not Detected (Not Detect); Shigella/Enteroinvasive E.coli Not Detected (Not Detect); Vibrio Not Detected (Not Detect); Vibrio cholerae Not Detected (Not Detect)
[2024-11-29 15:09] LABS: Yersinia enterocolitica Detected (Not Detect)
== END 2024-11-29 14:10 | disposition home or self-care (01) ==
LOC: ED 06:08 → AC 06:09
PROVIDERS: Family Medicine; Admitting Provider Internal Medicine; Emergency Provider Emergency Medicine; Referring Provider Emergency Medicine; Visit Provider Internal Medicine
DX: A41.9 Sepsis, unspecified organism (principal); R00.0 Tachycardia, unspecified; E86.0 Dehydration; F15.20 Other stimulant dependence, uncomplicated; F14.20 Cocaine dependence, uncomplicated; Z85.038 Personal history of other malignant neoplasm of large intestine; F17.200 Nicotine dependence, unspecified, uncomplicated; A04.6 Enteritis due to Yersinia enterocolitica; A08.11 Acute gastroenteropathy due to Norwalk agent
CPT/HCPCS: 36415; 71045; 74177; 80048; 80053; 80305; 81003; 83605; 83690; 85025; 87040; 87205; 87507; 93005; 96361; 96365; 96366; 96367; 99284; G0378; J0696; Q9967